=== PATIENT | female | born 1940 | race Caucasian/White ===

== ENCOUNTER 2018-05-09 07:22 | Emergency (ER) | payer BC ==
[~2018-05-09] VITALS: Ht 157.5 cm; Wt 93.5 kg
[2018-05-09] MEDS ORDERED: diltiazem 5mg/ml 5ml inj. IV ONE (07:50)
[2018-05-09 07:59] LABS: BASOPHILS % (AUTO) 0.8 % (0-1); EOSINOPHILS # (AUTO) 0.2 X10'3 (0-0.9); EOSINOPHILS % (AUTO) 2.5 % (0-6); HEMATOCRIT 47.6 % (35.0-45.0); HEMOGLOBIN 16.2 g/dl (12.0-16.0); LYMPHOCYTES # (AUTO) 2.4 X10'3 (1.1-4.8); LYMPHOCYTES % (AUTO) 39.5 % (21-51); MEAN CORPUSCULAR HEMOGLOBIN 31.7 PG (27.0-31.0); MEAN CORPUSCULAR HGB CONC 34.1 % (33.0-36.5); MEAN CORPUSCULAR VOLUME 93.1 FL (78-98); MEAN PLATELET VOLUME 7.9 FL (7.4-10.4); MONOCYTES # (AUTO) 0.7 X10'3 (0-0.9); MONOCYTES % (AUTO) 11.7 % (2-12); NEUTROPHILS # (AUTO) 2.8 X10'3 (1.8-7.7); NEUTROPHILS % (AUTO) 45.5 % (42-75); PLATELET COUNT 258 X10'3 (140-440); RED BLOOD COUNT 5.11 X10'6 (4.20-5.60); RED CELL DISTRIBUTION WIDTH 12.8 % (11.5-14.5); WHITE BLOOD COUNT 6.1 X10'3 (4.5-11.0)
[2018-05-09 08:39] LABS: ALANINE AMINOTRANSFERASE 103 U/L (12-78); ALBUMIN 3.6 G/DL (3.4-5.0); ALBUMIN/GLOBULIN RATIO 0.9 (1.1-1.5); ALKALINE PHOSPHATASE 107 IU/L (46-116); ANION GAP 13 (8-16); ASPARTATE AMINO TRANSFERASE 95 U/L (10-37); BILIRUBIN,TOTAL 0.7 MG/DL (0.1-1.0); BLOOD UREA NITROGEN 16 MG/DL (7-18); CALCIUM 9.4 MG/DL (8.5-10.1); CHLORIDE 104 MMOL/L (99-107); CREATININE 0.89 MG/DL (0.40-0.90); GLUCOSE 166 MG/DL (70-104); POTASSIUM 3.7 MMOL/L (3.5-5.1); SODIUM 141 MMOL/L (135-145); TOTAL CARBON DIOXIDE 24.3 MMOL/L (24-32); TOTAL PROTEIN 7.7 G/DL (6.4-8.2); eGFR 62 ML/MIN
[2018-05-09] MEDS ORDERED: ondansetron/PF 4mg/2ml inj IV ONE (08:55)
[2018-05-09 09:05] LABS: INR 0.9 INR; PARTIAL THROMBOPLASTIN TIME 25 SECONDS (22-32); PROTHROMBIN TIME 9.6 SECONDS (9.0-12.0)
[2018-05-09] MEDS ORDERED: enoxaparin 100mg/ml syringe SUBCUT ONE (09:05)
[2018-05-09] MEDS ORDERED: NO HOME MEDS (09:32)
[2018-05-09 11:04] VITALS: BP 130/66
[2018-05-09] MEDS ORDERED: METO-539 PO (12:06)
== END 2018-05-09 12:23 | disposition home or self-care (01) ==
LOC: ER 07:23
DX: I48.92 Unspecified atrial flutter (principal); Z79.899 Other long term (current) drug therapy
CPT/HCPCS: 36415; 71045; 80053; 82948; 83880; 84484; 85025; 85610; 85730; 93005; 96372; 96374; 96375; 99284; J2405; J1650; J3490